=== PATIENT | female | born 1990 | race African-American/Black ===

== ENCOUNTER 2016-09-04 11:37 | Emergency (ER) | payer SELFPAY ==
[2016-09-04 11:53] VITALS: BP 121/66
--- NOTE | 2016-09-04 12:56 | ER Document Report ---
ED GI/ - General Chief Complaint: Vag Bleeding, +preg <12wks Stated Complaint: VAGINAL BLEEDING/SPOTTING Mode of Arrival: Ambulatory Information source: Patient Notes: 26-year-old female presents to the emergency department complaining of vaginal spotting. Patient reports is approximately 8 weeks , , LMP . States noticed intermittently persistent bright red and pink tinged light spotting which began 3 days ago. Denies pelvic pain or cramping, fever, vaginal discharge, nausea or vomiting. TRAVEL OUTSIDE OF THE [place] IN LAST 30 DAYS: No - HPI Patient complains to provider of: , Vaginal bleeding Timing/Duration: Intermittent, Persistent Quality of pain: No pain Severity at maximum: Mild Severity in ED: Mild Pain Level: Denies Context: Vaginal bleeding (Compared to normal period): Spotting OB ultrasound done: No vitamins taken: Yes Associated symptoms: None Similar symptoms previously: No Recently seen / treated by doctor: No - Related Data Allergies/Adverse Reactions: No Known Allergies Allergy (Unverified 09/04/16 12:55) Past Medical History - General Information source: Patient - Social History Smoking Status: Never Smoker Frequency of alcohol use: None Drug Abuse: None Lives with: Family Family History: Reviewed & Not Pertinent - Medical History Medical History: Negative Surgical Hx: Negative - Immunizations Hx Diphtheria, Pertussis, Tetanus Vaccination: Yes Review of Systems - Review of Systems Constitutional: No symptoms reported EENT: No symptoms reported Cardiovascular: No symptoms reported Respiratory: No symptoms reported Gastrointestinal: No symptoms reported Genitourinary: No symptoms reported Female Genitourinary: See HPI Musculoskeletal: No symptoms reported Skin: No symptoms reported Hematologic/Lymphatic: No symptoms reported Neurological/Psychological: No symptoms reported -: Yes All other systems reviewed and negative Physical Exam - Vital signs Vitals: Temp Pulse Resp BP Pulse Ox 98 F 61 20 121/66 100 09/04/16 11:51 09/04/16 11:51 09/04/16 11:51 09/04/16 11:51 09/04/16 11:51 Interpretation: Normal - General General appearance: Appears well, Alert In distress: None - HEENT Head: Normocephalic, Atraumatic Eyes: Normal Pupils: PERRL - Respiratory Respiratory status: No respiratory distress Chest status: Nontender Breath sounds: Normal Chest palpation: Normal - Cardiovascular Rhythm: Regular Heart sounds: Normal auscultation Murmur: No Pulses: Normal: Radial Normal capillary refill: Yes - Abdominal Inspection: Normal Distension: No distension Bowel sounds: Normal Tenderness: Nontender. No: Tender, McBurney's point, Patricia's sign, Guarding, Rebound, Other Organomegaly: No organomegaly - Back Back: Normal, Nontender - Extremities General upper extremity: Normal inspection, Nontender, Normal color, Normal ROM , Normal strength, Normal temperature. No: Tender, Edema General lower extremity: Normal inspection, Nontender, Normal color, Normal ROM , Normal strength, Normal temperature, Normal weight bearing. No: Tender, Edema - Neurological Neuro grossly intact: Yes Cognition: Normal Orientation: AAOx4 Cameron Coma Scale Eye Opening: Spontaneous [place] Coma Scale Verbal: Oriented [place] Coma Scale Motor: Obeys Commands [place] Coma Scale Total: 15 Speech: Normal Motor strength normal: LUE, RUE, LLE, RLE Sensory: Normal - Psychological Associated symptoms: Normal affect, Normal mood - Skin Skin Temperature: Warm Skin Moisture: Dry Skin Color: Normal Course - Re-evaluation Re-evalutation: 09/04/16 15:47 Pt hemodynamically stable, in no distress, afebrile. Ultrasound shows possible intrauterine and small subchorionic bleed otherwise unremarkable. Discussed at length with patient obtaining follow-up evaluation in 2 days including repeat quantitative hcg. Order for outpatient repeat lab provided in discharge papwerwork. Pt appears stable for discharge and agrees with home care , follow-up, and ED return precautions. - Vital Signs Vital signs: Temp Pulse Resp BP Pulse Ox 98 F 61 20 121/66 100 09/04/16 11:51 09/04/16 11:51 09/04/16 11:51 09/04/16 11:51 09/04/16 11:51 - Laboratory Result Diagrams: 09/04/16 12:45 09/04/16 12:45 Laboratory results interpreted by me: 09/04/16 09/04/16 09/04/16 12:45 12:45 12:45 WBC 11.9 H Beta HCG, Quant 37889.00 H Urine Blood LARGE H Discharge - Discharge Clinical Impression: Vaginal bleeding before 22 weeks gestation Condition: Stable Disposition: HOME, SELF-CARE Additional Instructions: BLEEDING DURING EARLY : You have been evaluated for passing blood while . While we take this symptom very seriously, most women with your degree of bleeding will go on to have a perfectly normal baby. At this time, there is no indication that a miscarriage will occur. (A miscarriage occurs when the fetus is abnormal. There is no medicine or treatment to prevent it.) A more serious cause of bleeding is tubal (or ectopic) . An ultrasound usually can show whether the is in the uterus or in the tube. Sometimes in early , no fetus is seen. In this case, careful follow-up, including repeat blood tests and repeat ultrasound, is necessary. Do not douche or have sex for at least a week, or until OK'd by the doctor. Don't use tampons. Call the doctor or return for re-examination if there is an increase in bleeding or cramping, extreme weakness, fainting, new abdominal pain, fever, or passage of tissue. REPEAT BLOOD TEST: At this time, it is uncertain if you have a viable . During the first three months of , the hormone produced from the placenta will steadily rise, usually doubling in value every 2 - 3 days. In order to determine if your is viable and likely be succesful, a repeat of this blood test for the hormone is recommended in 2 - 3 days. An order for this test to be done as an outpatient is being provided. After you have this repeat test done, call your doctor or call us for the results. If the value of the test is increasing as would be expected in a normal , then your is likely to be ok. However, if the value of the test is declining, it will suggest something has happened with your and it will not likely be a successful . FOLLOW-UP CARE: Continue taking your daily vitamin. Follow-up in 2 days for repeat bloodwork as discussed. Return to the Emergency Department for any worsening symptoms or concerns. Forms: Follow-Up Laboratory Testing Referrals: [facility] [Provider Group] - 09/06/16
[2016-09-04 13:07] LABS: APPEARANCE,URINE CLEAR; BILIRUBIN,URINE NEGATIVE (NEGATIVE); GLUCOSE, URINE NEGATIVE (NEGATIVE); KETONES,URINE NEGATIVE (NEGATIVE); LEUKOCYTE ESTERASE,URINE NEGATIVE (NEGATIVE); NITRITE,URINE NEGATIVE (NEGATIVE); PROTEIN,URINE NEGATIVE (NEGATIVE); URINE SPECIFIC GRAVITY 1.001; UROBILINOGEN,URINE NEGATIVE mg/dL (<2.0)
[2016-09-04 13:09] LABS: ABSOLUTE BASOPHILS # (AUTO) 0.1 10^3/uL (0.0-0.2); ABSOLUTE EOSINOPHILS # (AUTO) 0.6 10^3/uL (0.0-0.6); ABSOLUTE LYMPHOCYTES (AUTO) 3.1 10^3/uL (0.5-4.7); ABSOLUTE MONOCYTES (AUTO) 0.9 10^3/uL (0.1-1.4); ABSOLUTE NEUT (AUTO) 7.3 10^3/uL (1.7-8.2); BASOPHILS % (AUTO) 0.9 % (0-2); EOSINOPHILS % (AUTO) 4.8 % (0-6); HEMATOCRIT 36.7 % (36.0-47.0); HEMOGLOBIN 12.2 g/dL (12.0-15.5); HGB HCT DIFFERENCE -0.1; LYMPHOCYTES % (AUTO) 25.8 % (13-45); MEAN CORPUSCULAR HEMOGLOBIN 28.4 pg (27.0-33.4); MEAN CORPUSCULAR HGB CONC 33.3 g/dL (32.0-36.0); MEAN CORPUSCULAR VOLUME 85 fl (80-97); MONOCYTES % (AUTO) 7.3 % (3-13); SEGMENTED NEUTROPHILS % (AUTO) 61.2 % (42-78); WHITE BLOOD COUNT 11.9 10^3/uL (4.0-10.5)
[2016-09-04 13:30] LABS: ALANINE AMINOTRANSFERASE 32 U/L (9-52); ALBUMIN 3.9 g/dL (3.5-5.0); ALKALINE PHOSPHATASE 59 U/L (38-126); ANION GAP 11 (5-19); ASPARTATE AMINO TRANSFERASE 18 U/L (14-36); BILIRUBIN,TOTAL 0.5 mg/dL (0.2-1.3); BLOOD UREA NITROGEN 8 mg/dL (7-20); CALCIUM 9.5 mg/dL (8.4-10.2); CARBON DIOXIDE 23 mmol/L (22-30); CHLORIDE 105 mmol/L (98-107); CREATININE RESULT 0.65 mg/dL (0.52-1.25); GLUCOSE 81 mg/dL (75-110); POTASSIUM 4.1 mmol/L (3.6-5.0); TOTAL PROTEIN 6.6 g/dL (6.3-8.2)
== END 2016-09-04 16:05 | disposition home or self-care (01) ==
LOC: ER 11:37
DX: O20.8 Other hemorrhage in early pregnancy (principal); Z3A.01 Less than 8 weeks gestation of pregnancy
CPT/HCPCS: 36415; 76817; 80053; 81001; 84702; 85025; 86900; 86901; 93976; 99284

== ENCOUNTER 2016-09-08 10:41 | Emergency (ER) | payer MEDICAID ==
--- NOTE | 2016-09-08 10:53 | ER Document Report ---
ED Medical Screen (RME) - General Stated Complaint: CRAMPING Mode of Arrival: Ambulatory Information source: Patient Notes: c/o abdominal cramping for 1 day and heavy bleeding that has been present for 1 week, worsened yesterday. Here for the same on Monday. Currently wearing 2nd feminine pad today. Approximately 6 weeks denies fever, chills, nausea, vomiting, vaginal discharge or dysuria I have greeted and performed a rapid initial assessment of this patient. A comprehensive ED assessment and evaluation of the patient, analysis of test results and completion of the medical decision making process will be conducted by additional ED providers. TRAVEL OUTSIDE OF THE [place] IN LAST 30 DAYS: No - Related Data Allergies/Adverse Reactions: No Known Allergies Allergy (Verified 09/08/16 10:50) Past Medical History - Immunizations Hx Diphtheria, Pertussis, Tetanus Vaccination: Yes Physical Exam - Vital signs Vitals: Temp Pulse Resp BP Pulse Ox 98.2 F 70 14 135/67 H 100 09/08/16 10:48 09/08/16 10:48 09/08/16 10:48 09/08/16 10:48 09/08/16 10:48 Course - Vital Signs Vital signs: Temp Pulse Resp BP Pulse Ox 98.2 F 70 14 135/67 H 100 09/08/16 10:48 09/08/16 10:48 09/08/16 10:48 09/08/16 10:48 09/08/16 10:48
[2016-09-08 11:23] LABS: ABSOLUTE BASOPHILS # (AUTO) 0.1 10^3/uL (0.0-0.2); ABSOLUTE EOSINOPHILS # (AUTO) 0.4 10^3/uL (0.0-0.6); ABSOLUTE LYMPHOCYTES (AUTO) 2.7 10^3/uL (0.5-4.7); ABSOLUTE MONOCYTES (AUTO) 0.8 10^3/uL (0.1-1.4); BASOPHILS % (AUTO) 0.6 % (0-2); EOSINOPHILS % (AUTO) 3.9 % (0-6); HEMATOCRIT 37.9 % (36.0-47.0); HEMOGLOBIN 12.6 g/dL (12.0-15.5); HGB HCT DIFFERENCE -0.1; LYMPHOCYTES % (AUTO) 24.3 % (13-45); MEAN CORPUSCULAR HEMOGLOBIN 28.7 pg (27.0-33.4); MEAN CORPUSCULAR HGB CONC 33.2 g/dL (32.0-36.0); MEAN CORPUSCULAR VOLUME 87 fl (80-97); MONOCYTES % (AUTO) 7.6 % (3-13); RED BLOOD COUNT 4.38 10^6/uL (3.72-5.28); SEGMENTED NEUTROPHILS % (AUTO) 63.6 % (42-78); WHITE BLOOD COUNT 11.1 10^3/uL (4.0-10.5)
--- NOTE | 2016-09-08 11:25 | ER Document Report ---
ED GI/ - General Chief Complaint: Vaginal Bleeding Stated Complaint: CRAMPING Time seen by provider: 11:10 Mode of Arrival: Ambulatory Information source: Patient Notes: 26 yo female with increased bleeding and cramping since she was seen with 6 weeks on monday in the ER. Passed 2 clots .US from monday showed only gestational sac, no pole or yolk sac which was not consistant with dates. TRAVEL OUTSIDE OF THE [place] IN LAST 30 DAYS: No - Related Data Allergies/Adverse Reactions: No Known Allergies Allergy (Verified 09/08/16 10:50) Past Medical History - General Information source: Patient - Social History Smoking Status: Never Smoker Chew tobacco use (# tins/day): No Frequency of alcohol use: None Lives with: Spouse/Significant other Family History: Reviewed & Not Pertinent Patient has suicidal ideation: No Patient has homicidal ideation: No Renal/ Medical History: Denies: Hx Peritoneal Dialysis - Immunizations Hx Diphtheria, Pertussis, Tetanus Vaccination: Yes Review of Systems - Review of Systems Constitutional: No symptoms reported EENT: No symptoms reported Cardiovascular: No symptoms reported Respiratory: No symptoms reported Gastrointestinal: No symptoms reported Genitourinary: No symptoms reported Female Genitourinary: See HPI Musculoskeletal: No symptoms reported Skin: No symptoms reported Hematologic/Lymphatic: No symptoms reported Neurological/Psychological: No symptoms reported Physical Exam - Vital signs Vitals: Temp Pulse Resp BP Pulse Ox 98.2 F 70 14 135/67 H 100 09/08/16 10:48 09/08/16 10:48 09/08/16 10:48 09/08/16 10:48 09/08/16 10:48 Interpretation: Normal - General General appearance: Appears well, Alert - HEENT Head: Normocephalic, Atraumatic Eyes: Normal Pupils: PERRL Neck: Supple - Respiratory Respiratory status: No respiratory distress Chest status: Nontender Breath sounds: Normal Chest palpation: Normal - Cardiovascular Rhythm: Regular Heart sounds: Normal auscultation Murmur: No - Abdominal Inspection: Normal Distension: No distension Bowel sounds: Normal Tenderness: Nontender. No: Tender Organomegaly: No organomegaly - Back Back: Normal, Nontender. No: CVA tenderness - Extremities General upper extremity: Normal inspection, Nontender, Normal color, Normal ROM , Normal temperature General lower extremity: Normal inspection, Nontender, Normal color, Normal ROM , Normal temperature, Normal weight bearing. No: Matteo's sign - Neurological Neuro grossly intact: Yes Cognition: Normal Orientation: AAOx4 Cameron Coma Scale Eye Opening: Spontaneous Cameron Coma Scale Verbal: Oriented Cameron Coma Scale Motor: Obeys Commands Cameron Coma Scale Total: 15 Speech: Normal Motor strength normal: LUE, RUE, LLE, RLE Sensory: Normal - Psychological Associated symptoms: Normal affect, Normal mood - Skin Skin Temperature: Warm Skin Moisture: Dry Skin Color: Normal Skin irregularity: negative: Rash Course - Re-evaluation Re-evalutation: 09/08/16 12:28 Ultrasound shows no gestational sac so the patient has had a spontaneous miscarriage her quantitative today is 7854. I explained this to the patient and she has have minimal discomfort at this time. Have her follow-up with her primary care doctor to follow hCG to 0. Blood type was O+ September 04 although another one has been sent to the lab today it is not resulted. 09/08/16 12:44 toDays blood type is O+ - Vital Signs Vital signs: Temp Pulse Resp BP Pulse Ox 98.0 F 65 16 130/60 H 100 09/08/16 12:52 09/08/16 12:52 09/08/16 12:52 09/08/16 12:52 09/08/16 12:52 - Laboratory Result Diagrams: 09/08/16 11:00 Laboratory results interpreted by me: 09/08/16 09/08/16 11:00 11:00 WBC 11.1 H Beta HCG, Quant 7854.30 H Discharge - Discharge Clinical Impression: Spontaneous miscarriage Condition: Good Disposition: HOME, SELF-CARE Instructions: Miscarriage ([facility]), Family Physicians / Practices, [facility] Additional Instructions: see your primary care doctor or obgyn to follow to make sure your HCG level goes to 0. multivitamin daily they usually recommend 1 normal menses before concieving again return to er if increased pain, fever, bleeding, any concerns Forms: Return to Work
[2016-09-08 12:53] VITALS: BP 130/60
== END 2016-09-08 12:53 | disposition home or self-care (01) ==
LOC: ER 10:41
DX: O03.9 Complete or unspecified spontaneous abortion without complication (principal)
CPT/HCPCS: 36415; 76817; 84702; 85025; 86900; 86901; 99284

== ENCOUNTER 2017-06-15 20:13 | Emergency (ER) | payer MEDICAID ==
--- NOTE | 2017-06-15 20:58 | ER Document Report ---
ED General - General Chief Complaint: Abdominal Pain Stated Complaint: ABDOMINAL PAIN Time Seen by Provider: 06/15/17 20:29 Mode of Arrival: Ambulatory Information source: Patient Notes: This is a 27-year-old female 2 para 1 (1 miscarriage in the past), last normal menstrual period May 28, who presents to the emergency room with 1-1 /2 weeks of lower pelvic cramping. Patient's noted that she just started having a small amount of vaginal bleeding today as well as some right upper quadrant pain today. The patient is sexually active and they are trying to have a baby. She is not sure whether she is . She does state that most of her cramping seems to be worse in the lower abdomen as compared to the right upper quadrant. TRAVEL OUTSIDE OF THE [place] IN LAST 30 DAYS: No - HPI Onset: Last week Onset/Duration: Gradual Quality of pain: Cramping, Dull Severity: Mild Pain Level: 1 Associated symptoms: denies: Chest pain, Fever, Nausea, Vomiting, Shortness of breath Exacerbated by: Denies Relieved by: Denies Similar symptoms previously: No Recently seen / treated by doctor: No - Related Data Allergies/Adverse Reactions: No Known Allergies Allergy (Verified 06/15/17 20:17) Past Medical History - General Information source: Patient - Social History Smoking Status: Never Smoker Chew tobacco use (# tins/day): No Smoking Education Provided: No Frequency of alcohol use: None Drug Abuse: None Lives with: Spouse/Significant other Family History: Reviewed & Not Pertinent Patient has suicidal ideation: No Patient has homicidal ideation: No - Medical History Medical History: Negative Renal/ Medical History: Denies: Hx Peritoneal Dialysis Surgical Hx: Negative - Immunizations Hx Diphtheria, Pertussis, Tetanus Vaccination: Yes Review of Systems - Review of Systems Constitutional: denies: Chills, Fever EENT: No symptoms reported Cardiovascular: No symptoms reported Respiratory: No symptoms reported Gastrointestinal: See HPI Genitourinary: No symptoms reported Female Genitourinary: No symptoms reported Musculoskeletal: No symptoms reported Skin: No symptoms reported Hematologic/Lymphatic: No symptoms reported Neurological/Psychological: No symptoms reported Physical Exam - Vital signs Vitals: Temp Pulse Resp BP Pulse Ox 98.9 F 88 16 151/65 H 100 06/15/17 20:20 06/15/17 20:20 06/15/17 20:20 06/15/17 20:20 06/15/17 20:20 Notes: Physical exam: GENERAL: 27-year-old female, alert and oriented 3, no acute distress HEAD: Atraumatic, normocephalic. EYES: Pupils equal round and reactive to light, extraocular movements intact, sclera anicteric, conjunctiva are normal. ENT: TMs normal, nares patent, oropharynx clear without exudates. Moist mucous membranes. NECK: Normal range of motion, supple without obvious mass or JVD. LUNGS: Breath sounds clear to auscultation bilaterally and equal. No wheezes rales or rhonchi. HEART: Regular rate and rhythm without murmurs, rubs or gallops. ABDOMEN: Soft, normoactive bowel sounds. Mild in the right upper quadrant tenderness to palpation bedside ultrasound:. No guarding, no rebound. No masses appreciated. No Patricia sign. Vaginal exam: External genitalia normal, scant discharge in the vault, no cervical motion tenderness, no adnexal tenderness, no adnexal masses. Performed with the presence of female solicitor patent (Fariba). EXTREMITIES: Normal range of motion, no pitting or edema. No clubbing or cyanosis. NEUROLOGICAL: Cranial nerves II through XII grossly intact. Normal speech, moving all extremities. PSYCH: Normal mood, normal affect. SKIN: Warm, Dry, normal turgor, no rashes or lesions noted. Bedside ultrasound: Multiple stones visualized within the gallbladder. No abnormal gallbladder wall thickening. No obvious impacted stones in the neck of the gallbladder. The neck of the gallbladder not visualized. Will obtain formal ultrasound. Course - Re-evaluation Re-evalutation: 06/15/17 23:41 Patient looks good on exam. She is requesting food. I have had a long discussion with her and her is at the bedside. I will refer her to the surgical clinic for persistent symptoms. I have advised her to avoid fried fatty foods. I will give her a trial of Prilosec just in case she is got some gastric irritation as well. - Vital Signs Vital signs: Temp Pulse Resp BP Pulse Ox 98.9 F 88 16 151/65 H 100 06/15/17 20:20 06/15/17 20:20 06/15/17 20:20 06/15/17 20:20 06/15/17 20:20 - Laboratory Result Diagrams: 06/15/17 21:18 06/15/17 21:18 Laboratory results interpreted by me: 06/15/17 06/15/17 21:18 21:18 WBC 12.2 H Absolute Neutrophils 8.3 H Urine Blood SMALL H - Diagnostic Test Radiology reviewed: Image reviewed, Reports reviewed - Right upper quadrant ultrasound shows gallstones without evidence of cholecystitis: Normal gallbladder wall, no impacted stones, no sonographic Patricia sign. Discharge - Discharge Clinical Impression: Cholelithiasis Condition: Stable Disposition: HOME, SELF-CARE Additional Instructions: Thank you for choosing [facility] for your care. The examination and treatment you have received in the Emergency Department today has been rendered on an emergency basis only and is not intended to be a substitute for complete medical care. You should contact your follow-up physician as it is important that he or she examine you for any new or remaining problems. If given a copy of any lab tests or radiology reports, please bring them with you when you see your physician. If your problem worsens or new symptoms appear and you are unable to arrange prompt follow-up care, return to the Emergency Department. Specific signs to look out for: Worsening abdominal pain, abdominal pain that is not going away, fever ( temperature greater than 100.5), persistent vomiting. Any other instructions: Avoid fried fatty foods. Take the Prilosec daily for the next 2 weeks. Follow- up with the surgical clinic if you have persistent pain in the upper abdominal pain. But if you feel like the pain is getting severe or worse or you developing fever, return to the ER. Prescriptions: Omeprazole Magnesium [Prilosec Otc] 20 mg PO DAILY #14 tablet.dr Forms: Return to Work Referrals: PAULINO ALBERTO MD [ACTIVE STAFF] - Follow up as needed (This is the number for the surgical clinic. Follow-up with the clinic if you have persistent right upper abdominal discomfort.)
[2017-06-15 21:45] LABS: ABSOLUTE BASOPHILS # (AUTO) 0.1 10^3/uL (0.0-0.2); ABSOLUTE EOSINOPHILS # (AUTO) 0.2 10^3/uL (0.0-0.6); ABSOLUTE LYMPHOCYTES (AUTO) 2.7 10^3/uL (0.5-4.7); ABSOLUTE MONOCYTES (AUTO) 0.9 10^3/uL (0.1-1.4); ABSOLUTE NEUT (AUTO) 8.3 10^3/uL (1.7-8.2); BASOPHILS % (AUTO) 0.5 % (0-2); EOSINOPHILS % (AUTO) 1.6 % (0-6); MEAN CORPUSCULAR HEMOGLOBIN 28.6 pg (27.0-33.4); MEAN CORPUSCULAR HGB CONC 33.4 g/dL (32.0-36.0); MEAN CORPUSCULAR VOLUME 86 fl (80-97); MONOCYTES % (AUTO) 7.4 % (3-13); RED BLOOD COUNT 4.56 10^6/uL (3.72-5.28); RED CELL DISTRIBUTION WIDTH 13.3 % (11.5-14.0); SEGMENTED NEUTROPHILS % (AUTO) 68.5 % (42-78); WHITE BLOOD COUNT 12.2 10^3/uL (4.0-10.5)
[2017-06-15 21:52] LABS: APPEARANCE,URINE CLEAR; BILIRUBIN,URINE NEGATIVE (NEGATIVE); GLUCOSE, URINE NEGATIVE (NEGATIVE); KETONES,URINE NEGATIVE (NEGATIVE); LEUKOCYTE ESTERASE,URINE NEGATIVE (NEGATIVE); NITRITE,URINE NEGATIVE (NEGATIVE); PROTEIN,URINE NEGATIVE (NEGATIVE); UROBILINOGEN,URINE NEGATIVE mg/dL (<2.0)
[2017-06-15 22:00] LABS: ALANINE AMINOTRANSFERASE 32 U/L (9-52); ALBUMIN 4.3 g/dL (3.5-5.0); ALKALINE PHOSPHATASE 68 U/L (38-126); ANION GAP 12 (5-19); ASPARTATE AMINO TRANSFERASE 20 U/L (14-36); BILIRUBIN,DIRECT 0.4 mg/dL (0.0-0.4); BILIRUBIN,TOTAL 0.6 mg/dL (0.2-1.3); BLOOD UREA NITROGEN 10 mg/dL (7-20); CALCIUM 9.5 mg/dL (8.4-10.2); CARBON DIOXIDE 25 mmol/L (22-30); CHLORIDE 105 mmol/L (98-107); GLUCOSE 102 mg/dL (75-110); POTASSIUM 3.7 mmol/L (3.6-5.0); SODIUM 141.5 mmol/L (137-145); TOTAL PROTEIN 7.3 g/dL (6.3-8.2)
--- NOTE | 2017-06-15 23:21 | RADIOLOGY REPORT (SQ) ---
EXAM DESCRIPTION: U/S ABDOMEN LIMITED W/O DOP CLINICAL HISTORY: 27 years, Female, upper abd pain eval for gb disease COMPARISON: None. TECHNIQUE: Transabdominal LIMITATIONS: None. FINDINGS: Several mobile gallstones. 0.2 cm gallbladder wall thickness. 0.3 cm diameter common duct. Pancreas, aorta, liver, vasculature, hepatobiliary ductal system, and 10.7 cm right kidney appear unremarkable. No significant free fluid. IMPRESSION: No acute findings. Cholelithiasis. 2011 [employer]- All Rights Reserved
[2017-06-16 00:57] VITALS: BP 116/78
== END 2017-06-15 23:55 | disposition home or self-care (01) ==
LOC: ER 20:13
DX: K80.20 Calculus of gallbladder without cholecystitis without obstruction (principal); R10.11 Right upper quadrant pain; R10.2 Pelvic and perineal pain; Z87.59 Personal history of other complications of pregnancy, childbirth and the puerperium
CPT/HCPCS: 36415; 76705; 80053; 81001; 84702; 85025; 87210; 87491; 87591; 99284

== ENCOUNTER → 2019-10-07 | Outpatient (CLI) | payer MEDICAID ==
--- NOTE | 2019-10-07 14:31 | RADIOLOGY REPORT (SQ) ---
EXAM DESCRIPTION: U/S [id number] TRNABD 1GES W/ODOP IMAGES COMPLETED DATE/TIME: 10/07/2019 1:31 pm REASON FOR STUDY: ENCOUNTER FOR SUPRVSN OF NORMAL , FIRST TRIMESTER Z34.81 ENCOUNTER FOR S UPRVSN OF NORMAL , FIRST TRIM COMPARISON: none EXAM PARAMETERS: TECHNIQUE: Transabdominal static and realtime grayscale images acquired of the pelv is. Additional selected spectral and color Doppler images recorded. All images stored on PACs. bHCG: Not available. LIMITATIONS: None. FINDINGS: Twin Intra-uterine gestation TYPE OF TWIN: Dichorionic Diamniotic. Two gestation sacs. Two yolk sacs. TWIN A: EGA: 9 weeks 1 day MAXIME: 05/10/2020 FHR: 165 bpm SUBCHORIONIC BLEED: Yes SIZE OF BLEED: 4.6 x 2.1 x 0.7 cm TWIN B: EGA: 9 weeks 4 days MAXIME: 05/07/2020 FHR: 165 bpm SUBCHORIONIC BLEED: No SIZE OF BLEED: Not applicable. UTERUS: No masses. No anomalies. CERVICAL LENGTH: 2.2 cm. Closed. RIGHT ADNEXA: Normal ovary with normal vascular flow. 3.3 x 2.3 x 1.6 cm. No adnexal free fluid. No adnexal masses. LEFT ADNEXA: Normal ovary with normal vascular flow. 3.4 x 2.8 x 2.1 cm. No adnexal free fluid. No adnexal masses. FREE FLUID: None. OTHER: No other significant finding. IMPRESSION: LIVING TWIN INTRAUTERINE TWIN A EGA: 9 weeks 1 day TWIN B EGA: 9 weeks 4 days Trimester of : First - 0 to 13 weeks. TECHNICAL DOCUMENTATION: JOB ID: [id number] 2010 [employer]- All Rights Reserved Reading location - IP/workstation name: [email or web address]
--- NOTE | 2019-10-07 14:33 | RADIOLOGY REPORT (SQ) ---
EXAM DESCRIPTION: U/S [id number] + EACH ADDIT GEST IMAGES COMPLETED DATE/TIME: 10/07/2019 1:31 pm REASON FOR STUDY: ENCOUNTER FOR SUPRVSN OF NORMAL , FIRST TRIMESTER Z34.81 ENCOUNTER FOR S UPRVSN OF NORMAL , FIRST TRIM COMPARISON: None. TECHNIQUE: Transabdominal static and realtime grayscale images acquired of the pelvis. Additional se lected spectral and color Doppler images recorded. All images stored on PACs. bHCG: Not available. CLINICAL DATES: 9 weeks 1 day LIMITATIONS: None. FINDINGS: See separate report ultrasound Ob 1st trimester. IMPRESSION: LIVING INTRAUTERINE . EGA 9 weeks 1 day 8 to 9 weeks 4 days Trimester of : First trimester - 0 to 13 weeks. TECHNICAL DOCUMENTATION: JOB ID: [id number] 2010 [employer]- All Rights Reserved rev-11/24 Reading location - IP/workstation name: [email or web address]
== END ==
LOC: RAD 12:55
PROVIDERS: ATTEND Nurse Practitioner Family
DX: O30.041 Twin pregnancy, dichorionic/diamniotic, first trimester (principal); Z3A.09 9 weeks gestation of pregnancy
CPT/HCPCS: 76801; 76802

== ENCOUNTER 2020-04-21 06:15 | Inpatient (IN) | payer MEDICAID ==
[2020-04-21] MEDS ORDERED: RINGERS SOLUTION,LACTATED 1,000 ML IV PRN (06:36)
[2020-04-21] MEDS ORDERED: RINGERS SOLUTION,LACTATED 1,000 ML IV ONE (06:36)
[2020-04-21 07:50] LABS: APPEARANCE,URINE CLOUDY; BILIRUBIN,URINE NEGATIVE (NEGATIVE); COLOR,URINE YELLOW; GLUCOSE, URINE NEGATIVE (NEGATIVE); KETONES,URINE NEGATIVE (NEGATIVE); LEUKOCYTE ESTERASE,URINE NEGATIVE (NEGATIVE); NITRITE,URINE NEGATIVE (NEGATIVE); PROTEIN,URINE 30 mg/dL (NEGATIVE); URINE SPECIFIC GRAVITY 1.024; UROBILINOGEN,URINE NEGATIVE mg/dL (<2.0)
[2020-04-21 07:50] LABS: ABSOLUTE EOSINOPHILS # (AUTO) 0.1 10^3/uL (0.0-0.6); ABSOLUTE LYMPHOCYTES (AUTO) 2.1 10^3/uL (0.5-4.7); ABSOLUTE MONOCYTES (AUTO) 0.9 10^3/uL (0.1-1.4); ABSOLUTE NEUT (AUTO) 10.5 10^3/uL (1.7-8.2); BASOPHILS % (AUTO) 0.2 % (0-2); EOSINOPHILS % (AUTO) 1.1 % (0-6); HEMATOCRIT 38.5 % (36.0-47.0); HEMOGLOBIN 13.3 g/dL (12.0-15.5); LYMPHOCYTES % (AUTO) 15.3 % (13-45); MEAN CORPUSCULAR HEMOGLOBIN 30.6 pg (27.0-33.4); MEAN CORPUSCULAR HGB CONC 34.5 g/dL (32.0-36.0); MEAN CORPUSCULAR VOLUME 89 fl (80-97); MONOCYTES % (AUTO) 6.5 % (3-13); PLATELET COUNT 174 10^3/uL (150-450); RED BLOOD COUNT 4.34 10^6/uL (3.72-5.28); RED CELL DISTRIBUTION WIDTH 13.9 % (11.5-14.0); SEGMENTED NEUTROPHILS % (AUTO) 76.9 % (42-78); TOTAL CELLS COUNTED % (AUTO) 100 %; WHITE BLOOD COUNT 13.6 10^3/uL (4.0-10.5)
[2020-04-21] MEDS ORDERED: OXYTOCIN/0.9 % SODIUM CHLORIDE 0 UNIT/0 ML RTUINJ ONE (08:09)
[2020-04-21 08:14] LABS: URINE AMPHETAMINES SCREEN NEGATIVE; URINE BARBITURATES SCREEN NEGATIVE; URINE BENZODIAZEPINES SCREEN NEGATIVE; URINE COCAINE SCREEN NEGATIVE; URINE MARIJUANA (THC) SCREEN NEGATIVE; URINE METHADONE SCREEN NEGATIVE; URINE PHENCYCLIDINE SCREEN NEGATIVE
[2020-04-21] MEDS ORDERED: OXYTOCIN/0.9 % SODIUM CHLORIDE 30 UNIT/500 ML RTUINJ IV PRN ×2 (08:16→17:07)
[2020-04-21] MEDS ORDERED: MISOPROSTOL 0.1 MG TABLET ONE ×2 (14:22→16:58)
[2020-04-21] MEDS ORDERED: EPHEDRINE SULFATE INJ 50 MG/1 ML AMPULE ONE (14:22)
[2020-04-21] MEDS ORDERED: OXYTOCIN 10 UNIT/ML VIAL ONE ×2 (14:22→16:16)
[2020-04-21] MEDS ORDERED: ROPIVACAINE HCL 0.2% INJ/PF (2 MG/ML) 20 ML SDV ONE (14:22)
[2020-04-21] MEDS ORDERED: FENTANYL/BUPIVACAINE/NS/PF 300 MCG/150 ML RTUINJ EPI ONE (14:22)
[2020-04-21] MEDS ORDERED: PROPOFOL INJ 200 MG/20 ML VIAL IV ONE (16:16)
[2020-04-21] MEDS ORDERED: LIDOCAINE 2% INJ-PF (20 MG/ML) 10 ML AMPUL ONE (16:17)
[2020-04-21] MEDS ORDERED: FENTANYL CITRATE INJ/PF 100 MCG/2 ML AMPUL ONE (16:17)
[2020-04-21] MEDS ORDERED: MIDAZOLAM 2 MG/2 ML INJ ONE (16:17)
[2020-04-21] MEDS ORDERED: OXYTOCIN/0.9 % SODIUM CHLORIDE 30 UNIT/500 ML RTUINJ ONE ×2 (16:17→16:56)
[2020-04-21] MEDS ORDERED: METHYLERGONOVINE MALEATE INJ/PF 0.2 MG/1 ML AMPULE ONE (16:56)
[2020-04-21] MEDS ORDERED: PROMETHAZINE HCL INJ 25 MG/1 ML VIAL IV PRN (17:07)
[2020-04-21] MEDS ORDERED: BENZOCAINE/MENTHOL AEROSOL SPRAY 56 ML TOP PRN (17:07)
[2020-04-21] MEDS ORDERED: PROMETHAZINE HCL 25 MG SUPP.RECT PR PRN (17:07)
[2020-04-21] MEDS ORDERED: GLYCERIN/WITCH HAZEL LEAF 1 EACH MED..WIPE TP PRN (17:07)
[2020-04-21] MEDS ORDERED: DIBUCAINE 1% OINTMENT 28 GM TP PRN (17:07)
[2020-04-21] MEDS ORDERED: ZOLPIDEM TARTRATE 5 MG TABLET PO PRN (17:07)
[2020-04-21] MEDS ORDERED: PROMETHAZINE HCL 25 MG TABLET PO PRN (17:07)
[2020-04-21] MEDS ORDERED: PSEUDOEPHEDRINE HCL 30 MG TABLET PO PRN (17:07)
[2020-04-21] MEDS ORDERED: MAGNESIUM HYDROXIDE SUSP 30 ML UDCUP PO PRN (17:07)
[2020-04-21] MEDS ORDERED: DIPH/PERTUSS(ACELL)/TETANUS VAC/PF 0.5 ML SYR (>=10YO) IM PRN (17:07)
[2020-04-21] MEDS ORDERED: MEASLES,MUMPS&RUBELLA VACC/PF 0.5 ML VIAL SUBCUT PRN (17:07)
[2020-04-21] MEDS ORDERED: ACETAMINOPHEN WITH CODEINE #3 TABLET PO PRN ×2 (17:07)
[2020-04-21] MEDS ORDERED: NA PHOS,M-B/NA PHOS,DI-BA (ADULT) 133 ML ENEMA PR PRN (17:07)
[2020-04-21] MEDS ORDERED: DIPHENHYDRAMINE HCL 25 MG CAPSULE PO PRN (17:07)
[2020-04-21] MEDS ORDERED: ACETAMINOPHEN 650 MG SUPP.RECT PR PRN (17:07)
--- NOTE | 2020-04-21 17:19 | Warning Signs in Babies ---
VOD Warning Signs Datetime Report Generated by CPN: 04/21/2020 17:19 VOD#608 -Warning Signs in Babies: Viewed with Parent(s)/Family (04/21/2020 06:23:Dalia North RN)
--- NOTE | 2020-04-21 18:55 | Birth Certificate Data ---
Cert Data Datetime Report Generated by LULÚ: 04/21/2020 18:55 CERTIFICATE DATA 47a. Care: Yes (04/21/2020 06:23:NII Bernal) 47b. Date of First Visit: 10/01/2019 00:00 (04/21/2020 06:23:NII Bernal) 47c. Date of Last Visit: 04/20/2020 00:00 (04/21/2020 06:23:NII Bernal) 47d. Number of Visits: 13 (04/21/2020 06:23:NII Bernal) 48a. Number of Prev Live Births: 1 (04/21/2020 06:23:NII Bernal) 48b. Now Livin (04/21/2020 06:23:NII Bernal) 48c. Live Births Now : 0 (04/21/2020 06:23:QS system process) 48d. Date of Last Live : 02/28/2009 00:00 (04/21/2020 06:23:NII Bernal) 48e. Losses: 1 (04/21/2020 06:23:NII Bernal) 48f. Date of Last Preg Loss: 04/26/2017 00:00 (04/21/2020 06:23:NII eBrnal) RISK FACTORS IN THIS 49a. Diabetes: No (04/21/2020 06:23:Valencia Terry RN) 49b. Hypertension: No (04/21/2020 06:23:Valencia Terry RN) 49c. Previous Births: 0 (04/21/2020 06:23:NII Bernal) 49d. Stillborns: No (04/21/2020 06:23:Valencai Terry RN) 49d. IUGR: No (04/21/2020 06:23:Valencia Terry RN) 49e. Infertility Treatment: No (04/21/2020 06:23:Valencia Terry RN) 49f. Previous Cesareans: 0 (04/21/2020 06:23:NII Bernla) Mother's Height 50b. Height Inches: 66 (04/21/2020 18:30:QS system process) Mother's Weight 51a. Pre- Weight (lbs): 195 (04/21/2020 06:23:NII Bernal) 51b. Weight at Delivery (lbs): 277 (04/21/2020 06:29:QS system process) 52. Dt Last Normal Menses Began: 08/08/2019 00:00 (04/21/2020 06:23:NII Bernal) Infections Present/Treated 53a. Gonorrhea: No (04/21/2020 06:23:Valencia Terry RN) Results this Hospital Visit : Negative (04/21/2020 06:23:NII Bernal) 53b. Syphilis: No (04/21/2020 06:23:Valencia Terry RN) Results this Hospital Visit: NONREACTIVE (04/21/2020 07:08:QS system process) 53c. Chlamydia: No (04/21/2020 06:23:Valencia Terry RN) Results this Hospital Visit: Negative (04/21/2020 06:23:NII Bernal) 53d. Hepatitis B: No (04/21/2020 06:23:Valencia Terry RN) Results this Hospital Visit: Negative (04/21/2020 06:23:NII Bernal) 53e. Hepatitis C: Negative (04/21/2020 06:23:NII Bernal) 53h. Mother Tested for HBsAG: Yes (04/21/2020 06:23:NII Bernal) 53i. Date Tested: 10/22/2019 00:00 (04/21/2020 06:23:NII Bernal) 53j. Test Result: Negative (04/21/2020 06:23:NII Bernal) Obstetric Procedures 54a, b, c. Obstetric Procedures: Ultrasound (04/21/2020 06:23:Dalia North RN) Cigarette Smoking Cigarette Smoking: Former Smoker. [id number] (04/21/2020 06:23:Valencia Terry RN) 55a. 3 Months Before Preg - Ci (04/21/2020 06:23:Valencia Terry RN) 55a. Packs: 0 (04/21/2020 06:23:Valencia Terry RN) 55b. 1st Trimester of Preg- Ci (04/21/2020 06:23:Valencia Terry RN) 55b. Packs: 0 (04/21/2020 06:23:Valencia Terry RN) 55c. 2nd Trimester of Preg- Ci (04/21/2020 06:23:Valencia Terry RN) 55c. Packs: 0 (04/21/2020 06:23:Valencia Terry RN) 55d. 3rd Trimester of Preg- Ci (04/21/2020 06:23:Valencia Terry RN) 55d. Packs: 0 (04/21/2020 06:23:Valencia Terry RN) Onset of Labor 56a. PROM >12 Hrs: 8.23 (04/21/2020 06:23:QS system process) 56b. Precipitous Labor <3 Hrs: 8 (04/21/2020 06:23:QS system process) 56c. Prolonged Labor > 20 Hrs: 8 (04/21/2020 06:23:QS system process) 57a. Induction of Labor: Induction (04/21/2020 06:23:Dalia North RN) 57c. Non-Vertex Presentation A: Vertex (04/21/2020 06:23:Sushma Easley MD ([facility])) 57c. Non-Vertex Presentation B: Vertex (04/21/2020 06:23:Sushma Easley MD ([facility])) 57d. Steroids - Lung Mat: None (04/21/2020 06:23:Dalia North RN) 57d. Steroids - Lung Mat: Not Applicable (04/21/2020 06:23:Dalia North RN) 57f. Mat Ch[place] or Temp >100.4: 98.4 (04/21/2020 06:23:Dalia North RN) 57g. Moderate/Heavy Meconium: Clear (04/21/2020 08:17:Dalia North RN) 57h. Intolerance of Labor: N/A (04/21/2020 06:23:Dalia North RN) 57i. Epidural/Spinal Anesthesia: Epidural (04/21/2020 06:23:Dalia North RN) Method of Delivery 58a. Forceps - Unsuccessful A: N/A (04/21/2020 06:23:Dalia North RN) 58a. Forceps - Unsuccessful B: N/A (04/21/2020 06:23:Dalia North RN) 58b. Vacuum - Unsuccessful A: N/A (04/21/2020 06:23:Dalia North RN) 58b. Vacuum - Unsuccessful B : N/A (04/21/2020 06:23:Dalia North RN) 58c. Presentation at 58c. Presentation at - A : Vertex (04/21/2020 06:23:Sushma Easley MD ([facility])) 58c. Presentation at - A : N/A (04/21/2020 06:23:Dalia North RN) 58c. Presentation at - A : Cephalic (04/21/2020 06:23:Sushma Easley MD ([facility])) 58c. Presentation at - B: Vertex (04/21/2020 06:23:Sushma Easley MD ([facility])) 58c. Presentation at - B : N/A (04/21/2020 06:23:Dalia North RN) 58c. Presentation at - B: Cephalic (04/21/2020 06:23:Sushma Easley MD ([facility])) Final Route and Method of Del 58d. Baby A Route/Delivery: Vaginal (04/21/2020 06:23:Dalia North RN) 58d. Baby B Route/Delivery: Vaginal (04/21/2020 06:23:Sushma Easley MD ([facility])) 58e. Trial of Labor Attempted: No (04/21/2020 06:23:Dalia North RN) 58e. Trial of Labor Attempted A: N/A (04/21/2020 06:23:Dalia North RN) 58e. Trial of Labor Attempted B: N/A (04/21/2020 06:23:Dalia North RN) Maternal Morbidity 59b. 3rd or 4th Degree Lacs: None (04/21/2020 06:23:Sushma Easley MD ([facility])) Birthweight Baby A: 2412 (04/21/2020 06:23:Dalia North RN) 60a. Pounds : 5 (04/21/2020 06:23:QS system process) 60b. Ounces: 5 (04/21/2020 06:23:QS system process) Birthweight Baby B 60a. Pounds: 7 (04/21/2020 06:23:QS system process) 60b. Ounces: 0 (04/21/2020 06:23:QS system process) 61. GA at Delivery Baby A: 37.2 (04/21/2020 06:23:Sushma Easley MD ([facility])) : Early Term- 37- 38.6 Weeks (04/21/2020 06:23:QS system process) Baby B: 37.2 (04/21/2020 06:23:Sushma Easley MD ([facility])) : Early Term- 37- 38.6 Weeks (04/21/2020 06:23:QS system process) 62a. 5 Minute Baby A: 9 (04/21/2020 06:23:QS system process) Baby B: 9 (04/21/2020 06:23:QS system process)
--- NOTE | 2020-04-21 18:55 | Delivery Summary ---
Del Sum A-C Datetime Report Generated by CPN: 04/21/2020 18:55 DELIVERY PERSONNEL DELIVERY PERSONNEL: [id number] Delivery Doctor:: Sushma Easley MD Labor and Delivery Nurse:: Dalia North RNsupervisor tree fruit and nut farming Nurse:: Samia Alcaraz RN Nursery Nurse:: Marlys Pickard RN Nursery Nurse:: Adore Hill RN Biomathematician/LUCERNE FARMER: Bindu Brooks, GRAIN PACKER Biomathematician/LUCERNE FARMER: Pilar Leung, ST MATERNAL INFORMATION Delivery Anesthesia: Epidural Medications After Delivery: Pitocin 30 Units in 500ml NS/D5W; Cytotec 1000mcg Per Rectum/Vagina Estimated Blood Loss (ml): 300 Maternal Complications: None LABOR SUMMARY EDC: 05/10/2020 00:00 No. Babies in Womb: 2 Attempted: No Labor Anesthesia: Epidural LABOR INFORMATION Reason for Induction: Other Reason for Induction- Other: twins Onset of Labor: 04/21/2020 08:17 Complete Dilatation: 04/21/2020 16:16 Oxytocin: Induction Group B Beta Strep: neg Antibiotics # of Doses: 0 Steroids Given: None Reason Steroids Not Administered: Not Applicable MEMBRANES Membranes Rupture Method: Artificial Rupture of Membranes: 04/21/2020 08:17 Length of Rupture (hr): 8.23 Amniotic Fluid Color: Clear Amniotic Fluid Amount: Large Amniotic Fluid Odor: None STAGES OF LABOR Stage 1 hr: 7 Stage 1 min: 59 Stage 2 hr: 0 Stage 2 min: 15 Stage 3 hr: 0 Stage 3 min: 14 Total Time in Labor hr: 8 Total Time in Labor min: 28 VAGINAL DELIVERY Episiotomy: None Laceration #1: None Laceration Extension #1: N/A Laceration Repair: Not Applicable Sponge Count Correct: N/A CSECTION DELIVERY Primary Indication: N/A BABY A INFORMATION Infant Delivery Date/Time: 04/21/2020 16:31 Method of Delivery: Vaginal Nurse Controlled Delivery: No Born in Route : No : N/A Forceps: N/A Vacuum Extraction: N/A Shoulder Dystocia : No PRESENTATION/POSITION BABY A Presentation: Cephalic Cephalic Presentation: Vertex Breech Presentation: N/A PLACENTA INFORMATION BABY A Placenta Delivery Time : 04/21/2020 16:45 Placenta Method of Delivery: Spontaneous Placenta Status: Delivered SCORES BABY A Heart Rate 1 min: >100 bpm Resp Effort 1 min: Good Cry Reflex Irritability 1 min: Cough or Sneeze or Pulls Away Muscle Tone 1 min: Active Motion Color 1 min: Body Exmore, Extremities Blue Resuscitation Effort 1 min: Tactile Stimulation SCORE 1 MIN: 9 Heart Rate 5 min: >100 bpm Resp Effort 5 min: Good Cry Reflex Irritability 5 min: Cough or Sneeze or Pulls Away Muscle Tone 5 min: Active Motion Color 5 min: Body Exmore, Extremities Blue Resuscitation Effort 5 min: N/A SCORE 5 MIN: 9 INFANT INFORMATION BABY A Gestational Age at Delivery: 37.2 Gestational Status: Early Term- 37- 38.6 Weeks Infant Outcome : Liveborn Condition : Stable Infant Sex: Female IDENTIFICATION BABY A Verification Date/Time: 04/21/2020 16:54 ID Band Number: [id number] Mother's Name Verified: Yes Infant RN Verifying : SAI Richardson Additional Verifying Personnel: Silviano Montes De Oca RN WEIGHT/LENGTH BABY A Infant Birthweight (gm): 2412 Infant Weight (lb): 5 Infant Weight (oz): 5 Length (in): 18.00 Length (cm): 45.72 CORD INFORMATION BABY A No. Cord Vessels: 3 Nuchal Cord : Around Neck x1, Tight Cord Blood Taken: Yes-For Eval (Mom's Blood Type - or O+) Infant Suction: Mouth ASSESSMENT BABY A Complications: None Physical Findings at Delivery: Within Normal Limits Infant Respirations: Appears Normal Skin to Skin: Yes Skin to Skin Time (min): 8 Sausage Cooker/ALS Called : No Care By: Brady Hill RN Transferred To: Remains with Mother BABY B INFORMATION Delivery Date/Time: 04/21/2020 16:42 Method of Delivery : Vaginal Nurse Controlled Delivery: No Born in Route : No : N/A Forceps : N/A Vacuum Extraction: N/A Shoulder Dystocia : No SHOULDER DYSTOCIA BABY B Infant Delivery Date/Time: 04/21/2020 16:42 PRESENTATION/POSITION BABY B Presentation : Cephalic Cephalic Position : Vertex Breech Position: N/A ROM/PLACENTA INFO BABY B Rupture of Membranes: 04/21/2020 16:36 Length of Rupture (hr): 0.10 Placenta Delivery Time : 04/21/2020 16:45 Placenta Method of Delivery: Spontaneous Placental Status : Delivered SCORES BABY B Heart Rate 1 min: >100 bpm Resp Effort 1 min: Good Cry Reflex Irritability 1 min: Cough or Sneeze or Pulls Away Muscle Tone 1 min: Active Motion Color 1 min: Blue/Pale Resuscitation Effort 1 min: Tactile Stimulation SCORE 1 MIN: 8 Heart Rate 5 min: >100 bpm Resp Effort 5 min: Good Cry Reflex Irritability 5 min: Cough or Sneeze or Pulls Away Muscle Tone 5 min: Active Motion Color 5 min: Body Exmore, Extremities Blue Resuscitation Effort 5 min: N/A SCORE 5 MIN: 9 INFORMATION BABY B Gestational Age at Delivery: 37.2 Gestational Status : Early Term- 37- 38.6 Weeks Infant Outcome : Liveborn Infant Condition : Stable Sex : Male IDENTIFICATION BABY B Verification Date/Time: 04/21/2020 16:58 ID Band Number : [id number] Mother's Name Verified: Yes Infant RN Verifying Infant: SAI Richardson Additional Verifying Personnel: Silviano Montes De Oca RN WEIGHT/LENGTH BABY B Birthweight (gm): 3168 Infant Weight (lb) : 7 Infant Weight (oz): 0 Length (in): 19.00 Length (cm): 48.26 CORD INFORMATION BABY B No. Cord Vessels : 3 Nuchal Cord : N/A Cord Blood Taken : Yes-For Eval (Mom's Blood Type -) Infant Suction : Mouth; Nose ASSESSMENT BABY B Complications : None Physical Findings at Delivery: Within Normal Limits Infant Respirations : Appears Normal Skin to Skin: Yes Transfer To: Remains with Mother SIGNATURES Signature: with User ID: Kirstin
[2020-04-21] MEDS: IBUPROFEN 800 MG TABLET PO SCH (23:06)
[2020-04-21] MEDS: FAMOTIDINE 20 MG TABLET PO SCH (23:07)
[2020-04-22] MEDS: IBUPROFEN 800 MG TABLET PO SCH ×3 (05:49→22:41)
[2020-04-22 08:38] LABS: HEMATOCRIT 36.1 % (36.0-47.0); HEMOGLOBIN 12.2 g/dL (12.0-15.5); MEAN CORPUSCULAR HGB CONC 33.7 g/dL (32.0-36.0); MEAN CORPUSCULAR VOLUME 89 fl (80-97); PLATELET COUNT 173 10^3/uL (150-450); RED BLOOD COUNT 4.06 10^6/uL (3.72-5.28); RED CELL DISTRIBUTION WIDTH 13.7 % (11.5-14.0); WHITE BLOOD COUNT 18.7 10^3/uL (4.0-10.5)
--- NOTE | 2020-04-22 09:41 | PDOC PROGRESS REPORT ---
Subjective-OB Progress Note for:: 04/22/20 - PP day #1, doing well, UOB, voiding, s/p of Twins, , O+, Rubella Immune, Physical Exam (OB) Vital Signs: Temp Pulse Resp BP Pulse Ox 98.1 F 79 22 H 138/64 H 100 04/22/20 08:00 04/22/20 08:00 04/22/20 08:00 04/22/20 08:00 04/22/20 08:00 Intake & Output 04/21/20 04/22/20 04/23/20 06:59 06:59 06:59 Output Total 300 Balance -300 Weight 126 kg - General General Appearance: Appears well, Alert In distress: None - PIH/Pre-Eclampsia Headache: Absent Epigastric Pain: No Visual Changes: No - Maternal Morbidity 59. Maternal Morbidity (serious complications experinced by the mother associated with labor and delivery: None of the above - Lochia Lochia Amount: Small 10-25 ml Lochia Color: Rubra/Red - Abdomen Description: Soft Hernia Present: No Fundal Description: Firm, Midline Fundal Height: u/u - u/2 - Respiratory Respiratory Status: No respiratory distress - Abdominal Distension: No distension Tenderness: Nontender - Genitourinary Genitourinary Note: voiding - Extremities Upper extremity: Normal inspection Lower extremities: Edema - Neurological Cognition: Normal Orientation: AAOx4 - Psychological Associated symptoms: Normal affect, Normal mood - Skin Skin Temperature: Warm Skin Moisture: Dry Objective-Diagnostic Laboratory: 04/22/20 07:44 04/22/20 07:44 WBC 18.7 H RBC 4.06 Hgb 12.2 Hct 36.1 MCV 89 MCH 30.0 MCHC 33.7 RDW 13.7 Plt Count 173 Assessment and Plan(PN) - Assessment and Plan (1) Dichorionic diamniotic twin Qualifiers: Trimester: third trimester Qualified Code(s): O30.043 - Twin , dichorionic/diamniotic, third trimester Is this a current diagnosis for this admission?: Yes (2) (normal spontaneous vaginal delivery) Is this a current diagnosis for this admission?: Yes Plan:: Routine PP orders, ambulation encourated - Time Spent with Patient Time with patient: Less than 15 minutes Medications reviewed and adjusted accordingly: Yes - Disposition Anticipated Discharge Disposition: Home, Self Care Anticipated Discharge Timeframe: within 24 hours
[2020-04-22] MEDS: DOCUSATE SODIUM 100 MG CAPSULE PO SCH ×2 (15:56→21:28)
[2020-04-22] MEDS: FERROUS SULFATE 325 MG TABLET PO SCH ×2 (15:56→21:28)
[2020-04-22] MEDS: SENNOSIDES/DOCUSATE 8.6-50 MG 1 EACH TABLET PO SCH (15:56)
[2020-04-22] MEDS: PRENATAL VITAMIN W DHA CAPSULE PO SCH (15:56)
[2020-04-22] MEDS: FAMOTIDINE 20 MG TABLET PO SCH ×2 (15:56→22:41)
[2020-04-23] MEDS: IBUPROFEN 800 MG TABLET PO SCH (06:00)
--- NOTE | 2020-04-23 09:46 | PDOC DISCHARGE SUMMARY ---
Impression - Admit/DC Date/PCP Admission Date/Primary Care Provider: 04/21/20 06:15 ANGELA WILLINGHAM Discharge Date: 04/23/20 - Discharge Diagnosis (1) Dichorionic diamniotic twin Is this a current diagnosis for this admission?: Yes (2) (normal spontaneous vaginal delivery) Is this a current diagnosis for this admission?: Yes (3) Encounter for planned induction of labor Is this a current diagnosis for this admission?: Yes - Additional Information Resuscitation Status: Full Code Discharge Diet: Regular Discharge Activity: Balance Activity w/Rest, Pelvic Rest Referrals: SAUMYA BRYSON ARNP [Primary Care Provider] - Prescriptions: Ibuprofen [Motrin 800 mg Tablet] 800 mg PO Q8HP PRN #60 tablet PRN Reason: Home Medications: Prenat 115/Iron Fum/Folic/Dss [ 19 Tablet] 1 tab PO DAILY 04/21/20 Ibuprofen [Motrin 800 mg Tablet] 800 mg PO Q8HP PRN #60 tablet 04/23/20 HPI Gestational Age: 37.2 Reason(s) for Admission: Induction of Labor, Twins Procedures: NST Intrapartum Procedure(s): Spontaneous Vaginal Delivery Hospital Course 59. Maternal Morbidity (serious complications experinced by the mother associated with labor and delivery: None of the above Results Laboratory Results: WBC 18.7 10^3/uL (4.0-10.5) H 04/22/20 07:44 RBC 4.06 10^6/uL (3.72-5.28) 04/22/20 07:44 Hgb 12.2 g/dL (12.0-15.5) 04/22/20 07:44 Hct 36.1 % (36.0-47.0) 04/22/20 07:44 MCV 89 fl (80-97) 04/22/20 07:44 MCH 30.0 pg (27.0-33.4) 04/22/20 07:44 MCHC 33.7 g/dL (32.0-36.0) 04/22/20 07:44 RDW 13.7 % (11.5-14.0) 04/22/20 07:44 Plt Count 173 10^3/uL (150-450) 04/22/20 07:44 Lymph % (Auto) 15.3 % (13-45) 04/21/20 07:08 [place] % (Auto) 6.5 % (3-13) 04/21/20 07:08 Eos % (Auto) 1.1 % (0-6) 04/21/20 07:08 Baso % (Auto) 0.2 % (0-2) 04/21/20 07:08 Absolute Neuts (auto) 10.5 10^3/uL (1.7-8.2) H 04/21/20 07:08 Absolute Lymphs (auto) 2.1 10^3/uL (0.5-4.7) 04/21/20 07:08 Absolute Monos (auto) 0.9 10^3/uL (0.1-1.4) 04/21/20 07:08 Absolute Eos (auto) 0.1 10^3/uL (0.0-0.6) 04/21/20 07:08 Absolute Basos (auto) 0.0 10^3/uL (0.0-0.2) 04/21/20 07:08 Seg Neutrophils % 76.9 % (42-78) 04/21/20 07:08 Urine Color YELLOW 04/21/20 06:30 Urine Appearance CLOUDY 04/21/20 06:30 Urine pH 6.0 (5.0-9.0) 04/21/20 06:30 Ur Specific [place] 1.024 04/21/20 06:30 Urine Protein 30 mg/dL (NEGATIVE) H 04/21/20 06:30 Urine Glucose (UA) NEGATIVE mg/dL (NEGATIVE) 04/21/20 06:30 Urine Ketones NEGATIVE mg/dL (NEGATIVE) 04/21/20 06:30 Urine Blood NEGATIVE (NEGATIVE) 04/21/20 06:30 Urine Nitrite NEGATIVE (NEGATIVE) 04/21/20 06:30 Urine Bilirubin NEGATIVE (NEGATIVE) 04/21/20 06:30 Urine Urobilinogen NEGATIVE mg/dL (<2.0) 04/21/20 06:30 Ur Leukocyte Esterase NEGATIVE (NEGATIVE) 04/21/20 06:30 Urine Ascorbic Acid NEGATIVE (NEGATIVE) 04/21/20 06:30 Urine Opiates Screen NEGATIVE 04/21/20 06:30 Urine Methadone Screen NEGATIVE 04/21/20 06:30 Ur Barbiturates Screen NEGATIVE 04/21/20 06:30 Ur Phencyclidine Scrn NEGATIVE 04/21/20 06:30 Ur Amphetamines Screen NEGATIVE 04/21/20 06:30 U Benzodiazepines Scrn NEGATIVE 04/21/20 06:30 Urine Cocaine Screen NEGATIVE 04/21/20 06:30 U Marijuana (THC) Screen NEGATIVE 04/21/20 06:30 RPR NONREACTIVE (NONREACTIVE) 04/21/20 07:08 Blood Type O POSITIVE 04/21/20 07:08 Antibody Screen NEGATIVE 04/21/20 07:08 Plan Time Spent: Less than 30 Minutes
[2020-04-23] MEDS: FAMOTIDINE 20 MG TABLET PO SCH (10:55)
[2020-04-23] MEDS: DOCUSATE SODIUM 100 MG CAPSULE PO SCH (10:55)
[2020-04-23] MEDS: FERROUS SULFATE 325 MG TABLET PO SCH (10:55)
[2020-04-23] MEDS: SENNOSIDES/DOCUSATE 8.6-50 MG 1 EACH TABLET PO SCH (10:56)
[2020-04-23] MEDS: PRENATAL VITAMIN W DHA CAPSULE PO SCH (10:56)
[2020-04-23 11:22] VITALS: BP 138/64
== END 2020-04-23 13:36 | disposition home or self-care (01) | DRG 807 ==
LOC: NU2 06:15 → LR 06:26 → 2S 20:38
PROVIDERS: ADMIT Obstetrics & Gynecology; ATTEND Obstetrics & Gynecology
PROC: 10E0XZZ Delivery of Products of Conception, External Approach (ICD-10-PCS; principal; 2020-04-21)
PROC: 3E033VJ Introduction of Other Hormone into Peripheral Vein, Percutaneous Approach (ICD-10-PCS; 2020-04-21)
PROC: 10907ZC Drainage of Amniotic Fluid, Therapeutic from Products of Conception, Via Natural or Artificial Opening (ICD-10-PCS; 2020-04-21)
DX: O30.043 Twin pregnancy, dichorionic/diamniotic, third trimester (principal); Z37.2 Twins, both liveborn; O69.1XX0 Labor and delivery complicated by cord around neck, with compression, not applicable or unspecified; Z3A.37 37 weeks gestation of pregnancy; Z87.891 Personal history of nicotine dependence
CPT/HCPCS: 1967; 36415; 80307; 81005; 85025; 85027; 86592; 86850; 86900; 86901; 88307; 94760; J2210; J2250; J2590; J2704; J2795; J3010; J3490

== ENCOUNTER 2020-07-26 17:46 | Emergency (ER) | payer MEDICAID ==
[2020-07-26 17:51] VITALS: BP 138/59
--- NOTE | 2020-07-26 17:56 | ER Document Report ---
ED Extremity Problem, Lower - General Chief Complaint: Knee Pain Stated Complaint: LEFT KNEE PAIN,SWELLING Time Seen by Provider: 07/26/20 17:51 Primary Care Provider: SHAWN HOLBROOK DO [ACTIVE STAFF] - Follow up as needed Notes: CHIEF COMPLAINT: Left knee pain for 1 week HPI: 30-year-old female presenting for left knee pain over the anterior knee for the last week. No trauma. No fever. No redness. Has taken no medications for her symptoms. Denies calf pain ROS: See HPI - all other systems were reviewed and are otherwise negative Constitutional: no fever Integumentary: no rash Allergy: no hives Musculoskeletal: + extremity pain or swelling Neurological: no numbness/tingling, no weakness MEDICATIONS: I agree with the patient medications as charted by the RN. ALLERGIES: I agree with the allergies as charted by the RN. PAST MEDICAL HISTORY/PAST SURGICAL HISTORY: Reviewed and agree as charted by RN. SOCIAL HISTORY: Reviewed and agree as charted by RN. FAMILY HISTORY: No significant familial comorbid conditions directly related to patient complaint EXAM: Reviewed vital signs as charted by RN. CONSTITUTIONAL: Alert and oriented and responds appropriately to questions. Well-appearing; well-nourished HEAD: Normocephalic; atraumatic EYES: Conjunctivae clear, sclerae non-icteric ENT: normal nose; no rhinorrhea; moist mucous membranes NECK: Supple without meningismus CARD: symmetric distal pulses RESP: Normal chest excursion without splinting or tachypnea ABD/GI: non-distended BACK: The back appears normal EXT: Normal ROM in all joints; supple effusion over the anterior left knee. No ballottement of the patella. Mild tenderness over the prepatellar region of the left knee. No visible erythema. No calf pain on palpation. Negative anterior drawer sign. No laxity on varus or valgus rotation of the knee. SKIN: Normal color for age and race; warm; dry; good turgor; no acute lesions noted NEURO: Moves all extremities equally; Motor and sensory function intact PSYCH: The patient's mood and manner are appropriate. Grooming and personal hygiene are appropriate. MDM: 30-year-old female with left knee pain for a week. No trauma no indication for imaging today. There is no erythema and patient is afebrile, no suggestion of septic joint at this time. Will place patient on Voltaren and have her follow-up with orthopedics or her PCP TRAVEL OUTSIDE OF THE [place] IN LAST 30 DAYS: No - Related Data Allergies/Adverse Reactions: No Known Allergies Allergy (Verified 04/21/20 06:28) Past Medical History - Social History Smoking Status: Current Every Day Smoker Chew tobacco use (# tins/day): No Frequency of alcohol use: Occasional Drug Abuse: None Family History: Reviewed & Not Pertinent Renal/ Medical History: Denies: Hx Peritoneal Dialysis Psychiatric Medical History: Denies: Hx Depression - Immunizations Hx Diphtheria, Pertussis, Tetanus Vaccination: Yes Physical Exam - Vital signs Vitals: Temp Pulse Resp BP Pulse Ox 98.3 F 86 16 138/59 H 100 07/26/20 17:50 07/26/20 17:50 07/26/20 17:50 07/26/20 17:50 07/26/20 17:50 Course - Vital Signs Vital signs: Temp Pulse Resp BP Pulse Ox 98.3 F 86 16 138/59 H 100 07/26/20 17:50 07/26/20 17:50 07/26/20 17:50 07/26/20 17:50 07/26/20 17:50 - Laboratory Results Critical Laboratory Results Reviewed: No Critical Results - Radiology Results Critical Radiology Results Reviewed: No Critical Results Discharge - Discharge Clinical Impression: Bursitis of left knee Qualifiers: Knee bursitis location: prepatellar bursitis Qualified Code(s): M70.42 - Prepatellar bursitis, left knee Condition: Stable Disposition: HOME, SELF-CARE Additional Instructions: Take the Voltaren for pain as prescribed. Ice to the knee twice daily for 5 to 10 minutes at a time do not place ice directly on the skin. Follow-up closely with orthopedics for further evaluation and treatment call for appointment you may also follow-up with your primary care provider. Prescriptions: Diclofenac Sodium [Voltaren 50 Mg Tablet.] 50 mg PO BID #20 tablet. Referrals: SHAWN HOLBROOK DO [ACTIVE STAFF] - Follow up as needed
== END 2020-07-26 18:00 | disposition home or self-care (01) ==
LOC: ER 17:46
DX: M70.42 Prepatellar bursitis, left knee (principal); M25.562 Pain in left knee; F17.200 Nicotine dependence, unspecified, uncomplicated
CPT/HCPCS: 99283